=== PATIENT | male | born 1980 | race Hispanic/Latino ===

== ENCOUNTER → 2023-06-21 | Outpatient (CLI) | payer BC, SELFPAY ==
[~2023-06-21] MED LIST: ASPI-1197 PO; ATOR20TA65 PO; DICY20TA3 PO; IOHEXOL 350 MG/ML 100ML INFUS..BTL IV ONE; OMEP40CA21 PO
== END | disposition home or self-care (01) ==
LOC: RAH 08:11
PROVIDERS: ATTEND Internal Medicine Cardiovascular Disease
DX: R07.9 Chest pain, unspecified (principal)
CPT/HCPCS: 75574; Q9967